=== PATIENT | male | born 1990 | race African-American/Black ===

== ENCOUNTER 2020-11-17 11:24 | Day surgery (SDC) | payer BC, OTHER ==
[2020-11-14 11:51] VITALS: BMI 29.5
[2020-11-17] MEDS ORDERED: LIDOCAINE HCL/PF 2% SDV 5ML VIAL ONE (11:43)
[2020-11-17] MEDS ORDERED: PROPOFOL 20 ML ONE ×2 (11:43)
[2020-11-17 13:39] VITALS: BP 101/65; PULSE 68; TEMP 98
== END 2020-11-17 13:59 | disposition home or self-care (01) ==
LOC: FASU-ENDO 11:24
PROVIDERS: ATTEND Internal Medicine Gastroenterology
PROC: 0DBL8ZX Excision of Transverse Colon, Via Natural or Artificial Opening Endoscopic, Diagnostic (ICD-10-PCS; 2020-11-17)
PROC: 0DBP8ZX Excision of Rectum, Via Natural or Artificial Opening Endoscopic, Diagnostic (ICD-10-PCS; 2020-11-17)
PROC: 0DBM8ZX Excision of Descending Colon, Via Natural or Artificial Opening Endoscopic, Diagnostic (ICD-10-PCS; 2020-11-17)
PROC: 0DBK8ZX Excision of Ascending Colon, Via Natural or Artificial Opening Endoscopic, Diagnostic (ICD-10-PCS; principal; 2020-11-17 12:38)
DX: D12.3 Benign neoplasm of transverse colon (principal); K63.89 Other specified diseases of intestine; K64.1 Second degree hemorrhoids; R10.9 Unspecified abdominal pain
CPT/HCPCS: 88305-TC

== ENCOUNTER 2024-08-30 20:57 | Emergency (ER) | payer OTHER, BC ==
[2024-08-30 21:13] VITALS: TEMP 97.5; BMI 30.8
[2024-08-30] MEDS ORDERED: LIDOCAINE PATCH REMOVAL MC SCH (22:00)
[2024-08-30] MEDS ORDERED: LIDOCAINE 4% PATCH TP ONE (22:02)
[2024-08-30] MEDS ORDERED: METHOCARBAMOL 500 MG TABLET ONE (22:02)
[2024-08-30] MEDS ORDERED: KETOROLAC TROMETHAMINE 30 MG/1 ML VIAL ONE (22:02)
[2024-08-30] MEDS: LIDOCAINE 4% PATCH TP ONE (22:14)
[2024-08-30] MEDS: METHOCARBAMOL 500 MG TABLET PO ONE (22:14)
[2024-08-30] MEDS: KETOROLAC TROMETHAMINE 30 MG/1 ML VIAL IM ONE (22:14)
[2024-08-30 22:44] VITALS: BP 147/94; PULSE 64; RESP 20
== END 2024-08-30 23:32 | disposition home or self-care (01) ==
LOC: JER 20:57 → JERFT 20:57
PROC: 3E0233Z Introduction of Anti-inflammatory into Muscle, Percutaneous Approach (ICD-10-PCS; principal; 2024-08-30)
DX: M54.50 Low back pain, unspecified (principal); G89.29 Other chronic pain
CPT/HCPCS: 99284-25